=== PATIENT | male | born 1935 | race Hispanic/Latino ===

== ENCOUNTER 2020-09-28 13:38 | Inpatient (IN) | payer MEDICARE ==
[~2020-09-28] VITALS: Ht 165.1 cm; Wt 74.8 kg
[~2020-09-28 13:38] MED LIST: CENTRUM COMPLE1 EACH PO; LISINOPRIL2.5 MG PO; METFORMIN HCL500 MG PO; TAMSULOSIN HCL0.4 MG PO
[2020-09-28 14:04] LABS: BASOPHILS % 0.1 % (0.0-1.0); HEMATOCRIT 35.4 % (38.2-49.6); HEMOGLOBIN 12.4 g/dL (14.0-18.0); LYMPHOCYTES # (AUTO) 0.8 (1.0-3.2); LYMPHOCYTES % 11.2 % (18.0-39.1); MEAN CORPUSCULAR HEMOGLOBIN 33.2 pg (28-32); MEAN CORPUSCULAR VOLUME 94.7 fL (81-99); MONOCYTES # (AUTO) 0.3 (0.2-0.8); MONOCYTES % 4.2 % (4.4-11.3); NEUTROPHILS # (AUTO) 5.8 (2.1-6.9); NEUTROPHILS % 83.9 % (38.7-80.0); PLATELET COUNT 242 x10e3/uL (140-360); RED BLOOD COUNT 3.74 x10e6/uL (4.3-5.7); RED CELL DISTRIBUTION WIDTH 11.4 % (11.7-14.4)
[2020-09-28 14:27] LABS: ALBUMIN 3.6 g/dL (3.5-5.0); ALBUMIN/GLOBULIN RATIO 0.9 (0.8-2.0); ANION GAP 16.4 mmol/L (8-16); CALCIUM 8.4 mg/dL (8.4-10.2); CREATININE, SERUM 1.37 mg/dL (0.72-1.25); POTASSIUM 4.4 mmol/L (3.5-5.1)
[2020-09-28] MEDS ORDERED: DEXTROSE 5%/0.45% SOD CHL 1,000 ML IV ONE (14:45)
[2020-09-28] MEDS ORDERED: DEXTROSE 5% 1,000 ML IV STA (15:04)
[2020-09-28] MEDS ORDERED: DEXTROSE 10% 1,000 ML IV STA (15:10)
[2020-09-28] MEDS ORDERED: ASPIRIN 81 MG CHEW TAB PO ONE (15:15)
[2020-09-28 15:33] LABS: CREATINE KINASE MB 2.5 ng/mL (0-5.0)
[2020-09-28] MEDS ORDERED: HYDROXYCHLOROQ200 MG (15:56)
[2020-09-28] MEDS ORDERED: AMLODIPINE BESYL5 MG PO (15:56)
[2020-09-28] MEDS ORDERED: PRAVACHOL20 MG PO (15:56)
[2020-09-28] MEDS ORDERED: GLIMEPIRIDE2 MG PO (15:56)
[2020-09-28] MEDS: CEFTRIAXONE SOD 1 GM/NS 50 ML 50 ML IV SCH (17:28)
[2020-09-28] MEDS: AZITHROMYCIN 500MG/NS 250 ML 250 ML IV SCH (17:28)
[2020-09-28] MEDS ORDERED: ACETAMINOPHEN 325 MG TAB ONE (19:11)
[2020-09-28] MEDS ORDERED: ACETAMINOPHEN 325 MG TAB PO ONE (19:15)
[2020-09-28] MEDS ORDERED: DEXTROSE 10% 1,000 ML IV ONE (19:16)
[2020-09-28] MEDS ORDERED: DEXTROSE 50% SYRINGE 50 ML IV PRN (20:45)
[2020-09-29] MEDS: ACETAMINOPHEN 325 MG TAB PO PRN ×3 (01:39→17:09)
[2020-09-29 01:58] LABS: CREATINE KINASE MB 3.9 ng/mL (0-5.0)
[2020-09-29] MEDS ORDERED: ZOLPIDEM TARTRATE 5 MG TAB PO PRN (05:45)
[2020-09-29] MEDS ORDERED: ONDANSETRON HCL INJ 2MG/ML 2ML 2 MG/ML VIAL IV PRN (05:45)
[2020-09-29] MEDS ORDERED: DOCUSATE SODIUM 100 MG CAP PO PRN (05:45)
[2020-09-29] MEDS ORDERED: DEXTROSE 50% SYRINGE 50 ML IV PRN (05:45)
[2020-09-29 06:08] LABS: BASOPHILS % 0.1 % (0.0-1.0); EOSINOPHILS % 0.1 % (0.0-6.0); HEMATOCRIT 33.5 % (38.2-49.6); HEMOGLOBIN 11.8 g/dL (14.0-18.0); LYMPHOCYTES % 12.7 % (18.0-39.1); MEAN CORPUSCULAR HGB CONC 35.2 g/dL (31-35); MEAN CORPUSCULAR VOLUME 93.6 fL (81-99); MONOCYTES # (AUTO) 0.3 (0.2-0.8); MONOCYTES % 3.8 % (4.4-11.3); NEUTROPHILS # (AUTO) 6.5 (2.1-6.9); NEUTROPHILS % 82.9 % (38.7-80.0); PLATELET COUNT 260 x10e3/uL (140-360); RED BLOOD COUNT 3.58 x10e6/uL (4.3-5.7); RED CELL DISTRIBUTION WIDTH 11.2 % (11.7-14.4)
[2020-09-29 06:44] LABS: ALANINE AMINOTRANSFERASE 39 IU/L (0-55); ALBUMIN 3.2 g/dL (3.5-5.0); ALBUMIN/GLOBULIN RATIO 0.9 (0.8-2.0); ALKALINE PHOSPHATASE 69 IU/L (40-150); ANION GAP 13.5 mmol/L (8-16); BLOOD UREA NITROGEN 15 mg/dL (7-26); BUN/CREATININE RATIO 15 (6-25); CALCIUM 8.1 mg/dL (8.4-10.2); CARBON DIOXIDE 21 mmol/L (22-29); CHLORIDE 101 mmol/L (98-107); CREATININE, SERUM 1.01 mg/dL (0.72-1.25); EST GLOMERULAR FILTRATION RATE > 60 ML/MIN (60-); GLUCOSE 85 mg/dL (74-118); POTASSIUM 4.5 mmol/L (3.5-5.1); SODIUM 131 mmol/L (136-145)
[2020-09-29 07:08] LABS: CHOL/HDL RATIO 2.2 (3.9-4.7)
[2020-09-29 07:25] LABS: CREATINE KINASE MB 3.9 ng/mL (0-5.0)
[2020-09-29] MEDS: INSULIN REGULAR, HUMAN 100 UNIT/1 ML 3ML VIAL SQ SCH ×4 (07:52→23:17)
[2020-09-29] MEDS: BENZONATATE 100 MG CAP PO SCH ×3 (07:58→22:57)
[2020-09-29] MEDS: GUAIFENESIN/DEXTROMETHORPHAN LIQD 5 ML UDC NG SCH ×3 (07:58→23:38)
[2020-09-29] MEDS: LORATADINE 10 MG TAB PO SCH (07:58)
[2020-09-29] MEDS: ASCORBIC ACID 500 MG TAB PO SCH ×2 (07:58→19:27)
[2020-09-29] MEDS: AMLODIPINE BESYLATE 5 MG TAB PO SCH (07:58)
[2020-09-29] MEDS: TAMSULOSIN HCL 0.4 MG CAP PO SCH (07:58)
[2020-09-29] MEDS: FAMOTIDINE 20 MG TAB PO SCH ×2 (07:58→19:26)
[2020-09-29] MEDS ORDERED: HYDROXYCHLOROQUINE SULFATE 200 MG TAB PO SCH (09:00)
[2020-09-29] MEDS ORDERED: DEXTROSE 10% 1,000 ML IV ONE (09:12)
[2020-09-29] MEDS ORDERED: IBUPROFEN 600 MG TAB PO STA (17:06)
[2020-09-29] MEDS ORDERED: IBUPROFEN 600 MG TAB ONE (17:11)
[2020-09-29] MEDS: ENOXAPARIN SOD INJ 40 MG/0.4 ML SYR SC SCH (18:05)
[2020-09-29] MEDS: AZITHROMYCIN 500MG/NS 250 ML 250 ML IV SCH (18:33)
[2020-09-29] MEDS: CEFTRIAXONE SOD 1 GM/NS 50 ML 50 ML IV SCH (19:27)
[2020-09-29] MEDS: PRAVASTATIN 20 MG TAB PO SCH (22:10)
[2020-09-30] MEDS: ACETAMINOPHEN 325 MG TAB PO PRN ×5 (01:42→20:45)
[2020-09-30] MEDS: INSULIN REGULAR, HUMAN 100 UNIT/1 ML 3ML VIAL SQ SCH ×4 (07:30→20:45)
[2020-09-30 09:50] VITALS: BP 122/45
[2020-09-30] MEDS: AMLODIPINE BESYLATE 5 MG TAB PO SCH (10:09)
[2020-09-30] MEDS: FAMOTIDINE 20 MG TAB PO SCH ×2 (10:09→16:28)
[2020-09-30] MEDS: LORATADINE 10 MG TAB PO SCH (10:09)
[2020-09-30] MEDS: TAMSULOSIN HCL 0.4 MG CAP PO SCH (10:09)
[2020-09-30] MEDS: ASCORBIC ACID 500 MG TAB PO SCH ×2 (10:10→16:37)
[2020-09-30] MEDS: BENZONATATE 100 MG CAP PO SCH ×3 (10:10→20:45)
[2020-09-30 13:14] VITALS: BP 152/61
[2020-09-30] MEDS: GUAIFENESIN/DEXTROMETHORPHAN LIQD 5 ML UDC NG SCH ×2 (13:59→21:25)
[2020-09-30] MEDS ORDERED: SODIUM CHLORIDE 0.9% 250ML 250 ML ONE (15:18)
[2020-09-30] MEDS ORDERED: AZITHROMYCIN250 MG PO (15:46)
[2020-09-30] MEDS ORDERED: VITAMIN C500 M6 PO (15:48)
[2020-09-30] MEDS ORDERED: LORATADINE10 M1 PO (15:48)
[2020-09-30] MEDS ORDERED: CEFUROXIME500 MG PO (15:50)
[2020-09-30] MEDS ORDERED: TESSALON PERLE100 MG PO (15:51)
[2020-09-30] MEDS ORDERED: GUAIFENESI100 MG/5 M (15:55)
[2020-09-30] MEDS: CEFTRIAXONE SOD 1 GM/NS 50 ML 50 ML IV SCH (16:34)
[2020-09-30] MEDS: ENOXAPARIN SOD INJ 40 MG/0.4 ML SYR SC SCH (16:37)
[2020-09-30 17:13] VITALS: BP 110/52
[2020-09-30] MEDS: AZITHROMYCIN 500MG/NS 250 ML 250 ML IV SCH (17:51)
[2020-09-30 20:00] VITALS: BP 119/56
[2020-09-30] MEDS: PRAVASTATIN 20 MG TAB PO SCH (20:45)
[2020-09-30 21:20] VITALS: BP 119/56
[2020-09-30] MEDS ORDERED: SODIUM CHLORIDE 0.9% 50ML 50 ML ONE (22:19)
[2020-09-30] MEDS ORDERED: IOPAMIDOL 370 MG/ML 200 ML INFUS..BTL INJ ONE (22:20)
[2020-10-01] VITALS (9 sets, daily range): BP systolic 112–147; BP diastolic 57–82
[2020-10-01] MEDS: GUAIFENESIN/DEXTROMETHORPHAN LIQD 5 ML UDC NG SCH ×3 (06:00→21:32)
[2020-10-01 07:10] LABS: BASOPHILS % 0.1 % (0.0-1.0); EOSINOPHILS % 0.2 % (0.0-6.0); HEMATOCRIT 33.8 % (38.2-49.6); HEMOGLOBIN 11.9 g/dL (14.0-18.0); LYMPHOCYTES # (AUTO) 0.8 (1.0-3.2); LYMPHOCYTES % 10.3 % (18.0-39.1); MEAN CORPUSCULAR HEMOGLOBIN 32.4 pg (28-32); MEAN CORPUSCULAR HGB CONC 35.2 g/dL (31-35); MEAN CORPUSCULAR VOLUME 92.1 fL (81-99); MONOCYTES # (AUTO) 0.3 (0.2-0.8); MONOCYTES % 3.7 % (4.4-11.3); PLATELET COUNT 323 x10e3/uL (140-360); RED BLOOD COUNT 3.67 x10e6/uL (4.3-5.7); RED CELL DISTRIBUTION WIDTH 11.4 % (11.7-14.4)
[2020-10-01 07:30] LABS: ANION GAP 14.5 mmol/L (8-16); BLOOD UREA NITROGEN 14 mg/dL (7-26); BUN/CREATININE RATIO 13 (6-25); CALCIUM 8.3 mg/dL (8.4-10.2); CARBON DIOXIDE 20 mmol/L (22-29); CHLORIDE 103 mmol/L (98-107); CREATININE, SERUM 1.06 mg/dL (0.72-1.25); EST GLOMERULAR FILTRATION RATE > 60 ML/MIN (60-); GLUCOSE 118 mg/dL (74-118); POTASSIUM 4.5 mmol/L (3.5-5.1); SODIUM 133 mmol/L (136-145)
[2020-10-01] MEDS: ASCORBIC ACID 500 MG TAB PO SCH ×2 (08:21→16:53)
[2020-10-01] MEDS: LORATADINE 10 MG TAB PO SCH (08:21)
[2020-10-01] MEDS: FAMOTIDINE 20 MG TAB PO SCH ×2 (08:21→16:53)
[2020-10-01] MEDS: TAMSULOSIN HCL 0.4 MG CAP PO SCH (08:21)
[2020-10-01] MEDS: AMLODIPINE BESYLATE 5 MG TAB PO SCH (08:21)
[2020-10-01] MEDS: BENZONATATE 100 MG CAP PO SCH ×3 (08:21→20:45)
[2020-10-01] MEDS: INSULIN REGULAR, HUMAN 100 UNIT/1 ML 3ML VIAL SQ SCH ×4 (08:59→20:45)
[2020-10-01] MEDS ORDERED: SODIUM CHLORIDE 0.9% 250ML 250 ML ONE (16:45)
[2020-10-01] MEDS: CEFTRIAXONE SOD 1 GM/NS 50 ML 50 ML IV SCH (16:53)
[2020-10-01] MEDS: ENOXAPARIN SOD INJ 40 MG/0.4 ML SYR SC SCH (16:53)
[2020-10-01] MEDS: AZITHROMYCIN 500MG/NS 250 ML 250 ML IV SCH (18:03)
[2020-10-01] MEDS: ACETAMINOPHEN 325 MG TAB PO PRN (20:15)
[2020-10-01] MEDS: PRAVASTATIN 20 MG TAB PO SCH (20:45)
[2020-10-02] MEDS: GUAIFENESIN/DEXTROMETHORPHAN LIQD 5 ML UDC NG SCH ×2 (05:38→13:55)
[2020-10-02] MEDS: INSULIN REGULAR, HUMAN 100 UNIT/1 ML 3ML VIAL SQ SCH ×2 (07:30→11:58)
[2020-10-02] MEDS: FAMOTIDINE 20 MG TAB PO SCH (07:30)
[2020-10-02 08:29] LABS: BASOPHILS % 0.3 % (0.0-1.0); EOSINOPHILS % 0.5 % (0.0-6.0); HEMATOCRIT 35.9 % (38.2-49.6); HEMOGLOBIN 12.5 g/dL (14.0-18.0); LYMPHOCYTES # (AUTO) 0.9 (1.0-3.2); LYMPHOCYTES % 12.2 % (18.0-39.1); MEAN CORPUSCULAR HEMOGLOBIN 32.8 pg (28-32); MEAN CORPUSCULAR HGB CONC 34.8 g/dL (31-35); MEAN CORPUSCULAR VOLUME 94.2 fL (81-99); MONOCYTES # (AUTO) 0.4 (0.2-0.8); MONOCYTES % 5.1 % (4.4-11.3); NEUTROPHILS # (AUTO) 6.1 (2.1-6.9); NEUTROPHILS % 81.1 % (38.7-80.0); PLATELET COUNT 400 x10e3/uL (140-360); RED BLOOD COUNT 3.81 x10e6/uL (4.3-5.7); RED CELL DISTRIBUTION WIDTH 11.5 % (11.7-14.4)
[2020-10-02 08:50] LABS: ANION GAP 14.5 mmol/L (8-16); BLOOD UREA NITROGEN 17 mg/dL (7-26); BUN/CREATININE RATIO 16 (6-25); CALCIUM 8.5 mg/dL (8.4-10.2); CARBON DIOXIDE 21 mmol/L (22-29); CHLORIDE 103 mmol/L (98-107); CREATININE, SERUM 1.05 mg/dL (0.72-1.25); EST GLOMERULAR FILTRATION RATE > 60 ML/MIN (60-); GLUCOSE 162 mg/dL (74-118); POTASSIUM 4.5 mmol/L (3.5-5.1); SODIUM 134 mmol/L (136-145)
[2020-10-02 09:00] VITALS: BP 137/63
[2020-10-02] MEDS: AMLODIPINE BESYLATE 5 MG TAB PO SCH (09:07)
[2020-10-02] MEDS: LORATADINE 10 MG TAB PO SCH (09:07)
[2020-10-02] MEDS: BENZONATATE 100 MG CAP PO SCH (09:07)
[2020-10-02] MEDS: ASCORBIC ACID 500 MG TAB PO SCH (09:07)
[2020-10-02] MEDS: TAMSULOSIN HCL 0.4 MG CAP PO SCH (09:07)
[2020-10-02] MEDS ORDERED: ONDANSETRON HCL 4 MG ORAL DISINTEGRATING TAB PO PRN (12:30)
== END 2020-10-02 15:48 | disposition home health service (06) | DRG 177 ==
LOC: ER 13:45 → ERHOLD 15:07 → OBSVTOIN 09-29 16:33 → INTOOBSV 09-29 16:33 → IMCU 09-30 09:29
PROVIDERS: ADMIT Internal Medicine; ATTEND Internal Medicine
PROC: 8E0ZXY6 Isolation (ICD-10-PCS; principal; 2020-09-29)
DX: U07.1 COVID-19 (principal); J15.9 Unspecified bacterial pneumonia; J96.01 Acute respiratory failure with hypoxia; J12.82 Pneumonia due to coronavirus disease 2019; G93.41 Metabolic encephalopathy; I10 Essential (primary) hypertension; E11.9 Type 2 diabetes mellitus without complications; E11.649 Type 2 diabetes mellitus with hypoglycemia without coma; Z79.899 Other long term (current) drug therapy; E78.5 Hyperlipidemia, unspecified
CPT/HCPCS: 36415; 71045; 74160; 80048; 80053; 80061; 82550; 82553; 82948; 83036; 83735; 84484; 85025; 87040; 93005; 99285; G0378; J0456; J0696; J1650; J1817; J7050; J7799; Q9967; U0002